=== PATIENT | male | born 1980 | race Caucasian/White ===

== ENCOUNTER 2021-02-09 00:54 | Emergency (ER) | payer BC ==
[2021-02-09] MEDS ORDERED: TYLENOL 325 MG PO ONE (01:05)
[2021-02-09] MEDS ORDERED: Zofran 4 MG/2 ML VIAL IV ONE (01:05)
[2021-02-09] MEDS ORDERED: Sodium Chloride 0.9% 1000 ML 1,000 ML IV STA (01:05)
[2021-02-09] MEDS ORDERED: MOTRIN 600 MG PO ONE (01:05)
[2021-02-09 01:06] VITALS: O2SAT 97
[2021-02-09] MEDS ORDERED: solu-MEDROL 125 MG, Sterile H2O 10 ml 2 ML IV ONE ×2 (01:08)
[2021-02-09] MEDS ORDERED: TYLENOL 325 MG ONE (01:24)
[2021-02-09] MEDS ORDERED: MOTRIN 600 MG ONE (01:24)
[2021-02-09 01:33] LABS: Absolute Neutrophil Ct (ANC) 11.37 (1.4-6.9); BASOPHIL % 0.1 % (0.0-0.4); Basophil (Absolute #) 0.02 (0-0.4); Eosinophil (Absolute #) 0 (0-0.5); Hematocrit 46.3 % (42-50); Hemoglobin 15.3 gm/dl (12.5-18.0); Lymphocyte (Absolute #) 2.67 (1.0-4.6); Lymphocytes % 16.4 % (24.0-44.0); Mean Cell Volume 87.4 fl (78-100); Mean Corpuscular Hemoglobin 28.9 pg (26-32); Mean Platelet Volume 11.3 fl (7.5-11.0); Monocyte (Absolute #) 2.21 (0.0-1.3); Monocytes % 13.6 % (0.0-12.0); Neutrophil % 69.9 % (36.0-66.0); Platelet Count 195 K/mm3 (150-450); Red Cell Distribution Width 13.4 % (11.5-14.0); White Blood Count 16.3 K/mm3 (4.0-10.5)
[2021-02-09] MEDS ORDERED: Zofran 4 MG/2 ML VIAL ONE (01:43)
[2021-02-09] MEDS ORDERED: solu-MEDROL ONE (01:44)
[2021-02-09] MEDS ORDERED: Sodium Chloride 0.9% 1000 ML 1,000 ML ONE (01:44)
[2021-02-09 01:50] LABS: ALBUMIN 4.3 g/dL (3.5-5.0); ALKALINE PHOSPHATASE 77 U/L (38-126); ANION GAP 15.9 MEQ/L (5-15); BLOOD UREA NITROGEN 16 mg/dL (9-20); CHLORIDE 103 mmol/L (98-107); Calcium 9.3 mg/dL (8.4-10.2); Carbon Dioxide 21 mmol/L (22-30); Creatinine 1 1.08 mg/dL (0.66-1.25); EST GLOMERULAR FILTRATION RATE > 60.0 ML/MIN; Glucose 123 mg/dL (74-106); Potassium 3.6 mmol/L (3.5-5.1); SGOT/AST 25 U/L (17-59); SGPT/ALT 24 U/L (0-50); SODIUM 136 mmol/L (137-145); Total Protein 7.1 g/dL (6.3-8.2)
--- NOTE | 2021-02-09 01:59 | ERPHSYRPT ---
- History of Present Illness Time Seen by Provider: 02/09/21 01:15 Source: patient Exam Limitations: no limitations Patient Subjective Stated Complaint: I have sorethroat, rt ear pain, gen aches, fever Triage Nursing Assessment: pt c/o sorethroat, rt ear pain, generalized body aches and fever. Pt was seen in [facility] care clinic today and swabbed for covid and strep, pt says results were negative. Pt hasn't been able to eat and drink normally for the last couple days, hurts when he swallows. Pt's throat is red with white patches in the back of his throat. Physician History: Patient is a 40-year-old white male who has been sick for 2 days. He started with fever and body aches and a severe sore throat as well as right ear pain. His temperature this evening was 102 before coming to the ER. He was seen in quick clinic today had a Covid swab and a rapid strep swab both of which were negative he did receive an injection of antibiotics and was given a prescription for Augmentin. Timing/Duration: abrupt onset Severity: severe ENT Location: ear (R), nose Prearrival Treatment: prescription meds Modifying Factors: Improves With: coughing Associated Symptoms: ear pain (R), cough, headache, swollen glands, sore throat, difficulty swallowing Allergies/Adverse Reactions: No Known Drug Allergies Allergy (Unverified 02/09/21 01:15) Home Medications: Amoxicillin/Potassium Clav [Amox-Clav 875-125 mg Tablet] 1 tab PO BID 02/09/21 [History] Hx Tetanus, Diphtheria Vaccination/Date Given: Yes Hx Influenza Vaccination/Date Given: No Hx Pneumococcal Vaccination/Date Given: No Immunizations Up to Date: Yes Travel Risk - International Travel Have you traveled outside of the country in past 3 weeks: No - Coronavirus Screening Are you exhibiting any of the following symptoms?: Yes Symptoms: Fever, Headaches/Body Aches/Fatigue Close contact with a COVID-19 positive Pt in past 14-21 Days: No - Vaccine Status Have you recieved a Covid-19 vaccination: No - Review of Systems Constitutional: Fever, Malaise, Weakness, No Chills Eyes: No Symptoms Ears, Nose, & Throat: Ear Pain, Throat Pain, Throat Swelling, Hoarse, Painful S wallowing Respiratory: Cough, No Dyspnea Cardiac: No Chest Pain, No Edema, No Syncope Abdominal/Gastrointestinal: No Abdominal Pain, No Nausea, No Vomiting, No Diarrhea Genitourinary Symptoms: No Symptoms, No Dysuria Musculoskeletal: Arthralgias, Myalgias, No Back Pain, No Neck Pain Skin: No Rash Neurological: No Dizziness, No Focal Weakness, No Sensory Changes Psychological: No Symptoms Endocrine: No Symptoms All Other Systems: Reviewed and Negative - Past Medical History Pertinent Past Medical History: Yes Neurological History: No Pertinent History ENT History: No Pertinent History Cardiac History: No Pertinent History Respiratory History: No Pertinent History Endocrine Medical History: No Pertinent History Musculoskeletal History: No Pertinent History GI Medical History: No Pertinent History History: No Pertinent History Psycho-Social History: No Pertinent History Male Reproductive Disorders: No Pertinent History Other Medical History: recovering alcoholic. frequent sore throat - Past Surgical History Past Surgical History: No Neuro Surgical History: No Pertinent History Cardiac: No Pertinent History Respiratory: No Pertinent History Gastrointestinal: No Pertinent History Genitourinary: No Pertinent History Musculoskeletal: No Pertinent History Male Surgical History: No Pertinent History - Social History Smoking Status: Current every day smoker How long have you smoked: 20 Exposure to second hand smoke: Yes Drug Use: none Patient Lives Alone: No - Nursing Vital Signs Nursing Vital Signs: Initial Vital Signs Temperature 102.6 F 02/09/21 01:00 Pulse Rate 110 H 02/09/21 01:00 Respiratory Rate 20 02/09/21 01:00 Blood Pressure 169/89 02/09/21 01:00 O2 Sat by Pulse Oximetry 97 02/09/21 01:00 Pain Scale Pain Intensity 4 - Physical Exam General Appearance: mild distress Eye Exam: bilateral eye: PERRL, EOMI Ear Exam: bilateral ear: auricle normal, canal normal, TM normal Nasal Exam: normal inspection Throat Exam: pharynx swelling, pharynx tenderness, tonsillar exudate, tonsillar swelling, uvula swelling Neck Exam: lymphadenopathy (R), lymphadenopathy (L) Cardiovascular/Respiratory Exam: normal breath sounds, regular rate/rhythm Abdominal Exam: non-tender, soft Neurologic Exam: alert, oriented x 3, sensation nml, No motor deficits Skin Exam: normal color, warm, dry SpO2 Interpretation: normal SpO2: 97 O2 Delivery: Room Air - Course Nursing assessment & vital signs reviewed: Yes - Radiology Exams Chest X-ray Interpretation: Interpreted by me, Negative Ordered Tests: Active Orders 24 hr Category Date Time Status IV Insertion STAT Care 02/09/21 01:05 Active CHEST 1 VIEW (PORTABLE) Stat Exams 02/09/21 01:06 Ordered BLOOD CULTURE Stat Lab 02/09/21 01:30 Received CBC W DIFF Stat Lab 02/09/21 01:30 Completed CMP Stat Lab 02/09/21 01:30 Completed CULTURE,URINE Stat Lab 02/09/21 01:56 Received UA W/RFX UR CULTURE Stat Lab 02/09/21 01:56 Completed Medication Summary Discontinued Medications Generic Name Dose Route Start Last Admin Trade Name Rissa PRN Reason Stop Dose Admin Acetaminophen 975 mg 02/09/21 01:05 02/09/21 01:25 Acetaminophen 325 Mg Tablet PO 02/09/21 01:06 975 mg STAT ONE Administration Acetaminophen Confirm 02/09/21 01:24 Acetaminophen 325 Mg Tablet Administered 02/09/21 01:25 Dose 975 mg .ROUTE .STK-MED ONE Methylprednisolone Sodium 0 mg 02/09/21 01:08 02/09/21 01:44 Succinate 125 mg/ Sterile IV 02/09/21 01:09 125 mg Water 2 ml STAT ONE Administration Sodium Chloride 1,000 mls @ 999 mls/hr 02/09/21 01:05 02/09/21 01:45 Sodium Chloride 0.9% 1000 Ml IV 02/09/21 02:05 999 mls/hr .Q1H1M STA Administration Sodium Chloride Confirm 02/09/21 01:44 Sodium Chloride 0.9% 1000 Ml Administered 02/09/21 01:45 Dose 1,000 mls @ ud .ROUTE .STK-MED ONE Ibuprofen 600 mg 02/09/21 01:05 02/09/21 01:25 Ibuprofen 600 Mg Tablet PO 02/09/21 01:06 600 mg STAT ONE Administration Ibuprofen Confirm 02/09/21 01:24 Ibuprofen 600 Mg Tablet Administered 02/09/21 01:25 Dose 600 mg .ROUTE .STK-MED ONE Methylprednisolone Sodium Succinate Confirm 02/09/21 01:44 Methylprednis Sod Succ 125 Mg/2 Ml Vial Administered 02/09/21 01:45 Dose 125 mg .ROUTE .STK-MED ONE Ondansetron HCl 4 mg 02/09/21 01:05 02/09/21 01:44 Ondansetron Hcl 4 Mg/2 Ml Vial IV 02/09/21 01:06 4 mg STAT ONE Administration Ondansetron HCl Confirm 02/09/21 01:43 Ondansetron Hcl 4 Mg/2 Ml Vial Administered 02/09/21 01:44 Dose 4 mg .ROUTE .STK-MED ONE Lab/Rad Data: Laboratory Result Diagrams 02/09/21 01:30 02/09/21 01:30 Laboratory Results 02/09/21 02/09/21 02/09/21 Range/Units 01:56 01:30 01:30 WBC (4.0-10.5) K/mm3 RBC (4.1-5.6) M/mm3 Hgb (12.5-18.0) gm/dl Hct (42-50) % MCV (78-100) fl MCH (26-32) pg MCHC (32-36) g/dl RDW (11.5-14.0) % Plt Count (150-450) K/mm3 MPV (7.5-11.0) fl Gran % (36.0-66.0) % Eos # (Auto) (0-0.5) Absolute Lymphs (auto) (1.0-4.6) Absolute Monos (auto) (0.0-1.3) Lymphocytes % (24.0-44.0) % Monocytes % (0.0-12.0) % Eosinophils % (0.00-5.0) % Basophils % (0.0-0.4) % Absolute Granulocytes (1.4-6.9) Basophils # (0-0.4) Sodium 136 L (137-145) mmol/L Potassium 3.6 (3.5-5.1) mmol/L Chloride 103 (98-107) mmol/L Carbon Dioxide 21 L (22-30) mmol/L Anion Gap 15.9 H (5-15) MEQ/L BUN 16 (9-20) mg/dL Creatinine 1.08 (0.66-1.25) mg/dL Estimated GFR > 60.0 ML/MIN Glucose 123 H (74-106) mg/dL Calcium 9.3 (8.4-10.2) mg/dL Total Bilirubin 0.90 (0.2-1.3) mg/dL AST 25 (17-59) U/L ALT 24 (0-50) U/L Alkaline Phosphatase 77 (38-126) U/L Serum Total Protein 7.1 (6.3-8.2) g/dL Albumin 4.3 (3.5-5.0) g/dL Urine Color JOHN (YELLOW) Urine Appearance SLIGHTLY CLOUDY (CLEAR) Urine pH 5.0 (5-6) Ur Specific [place] 1.027 (1.005-1.025) Urine Protein >=500 (Negative) Urine Ketones SMALL (NEGATIVE) Urine Blood SMALL (0-5) Forrest/ul Urine Nitrite NEGATIVE (NEGATIVE) Urine Bilirubin NEGATIVE (NEGATIVE) Urine Urobilinogen 2 (0-1) mg/dL Ur Leukocyte Esterase NEGATIVE (NEGATIVE) Urine WBC (Auto) NONE (0-5) /HPF Urine RBC (Auto) 0-2 (0-2) /HPF U Epithel Cells (Auto) NONE (FEW) /HPF Urine Bacteria (Auto) NONE SEEN (NEGATIVE) /HPF Urine Mucus (Auto) SLIGHT (NEGATIVE) /HPF Urine Culture Reflexed YES (NO) Urine Glucose NEGATIVE (NEGATIVE) mg/dL Influenza Type A Ag NEGATIVE (NEGATIVE) Influenza Type B Ag NEGATIVE (NEGATIVE) RSV (PCR) NEGATIVE (Negative) SARS-CoV-2 (PCR) NEGATIVE (NEGATIVE) Group A Strep Antibody NOT DETECTED (NEGATIVE) 02/09/21 Range/Units 01:30 WBC 16.3 H (4.0-10.5) K/mm3 RBC 5.30 (4.1-5.6) M/mm3 Hgb 15.3 (12.5-18.0) gm/dl Hct 46.3 (42-50) % MCV 87.4 (78-100) fl MCH 28.9 (26-32) pg MCHC 33.0 (32-36) g/dl RDW 13.4 (11.5-14.0) % Plt Count 195 (150-450) K/mm3 MPV 11.3 H (7.5-11.0) fl Gran % 69.9 H (36.0-66.0) % Eos # (Auto) 0 (0-0.5) Absolute Lymphs (auto) 2.67 (1.0-4.6) Absolute Monos (auto) 2.21 H (0.0-1.3) Lymphocytes % 16.4 L (24.0-44.0) % Monocytes % 13.6 H (0.0-12.0) % Eosinophils % 0.0 (0.00-5.0) % Basophils % 0.1 (0.0-0.4) % Absolute Granulocytes 11.37 H (1.4-6.9) Basophils # 0.02 (0-0.4) Sodium (137-145) mmol/L Potassium (3.5-5.1) mmol/L Chloride (98-107) mmol/L Carbon Dioxide (22-30) mmol/L Anion Gap (5-15) MEQ/L BUN (9-20) mg/dL Creatinine (0.66-1.25) mg/dL Estimated GFR ML/MIN Glucose (74-106) mg/dL Calcium (8.4-10.2) mg/dL Total Bilirubin (0.2-1.3) mg/dL AST (17-59) U/L ALT (0-50) U/L Alkaline Phosphatase (38-126) U/L Serum Total Protein (6.3-8.2) g/dL Albumin (3.5-5.0) g/dL Urine Color (YELLOW) Urine Appearance (CLEAR) Urine pH (5-6) Ur Specific [place] (1.005-1.025) Urine Protein (Negative) Urine Ketones (NEGATIVE) Urine Blood (0-5) Forrest/ul Urine Nitrite (NEGATIVE) Urine Bilirubin (NEGATIVE) Urine Urobilinogen (0-1) mg/dL Ur Leukocyte Esterase (NEGATIVE) Urine WBC (Auto) (0-5) /HPF Urine RBC (Auto) (0-2) /HPF U Epithel Cells (Auto) (FEW) /HPF Urine Bacteria (Auto) (NEGATIVE) /HPF Urine Mucus (Auto) (NEGATIVE) /HPF Urine Culture Reflexed (NO) Urine Glucose (NEGATIVE) mg/dL Influenza Type A Ag (NEGATIVE) Influenza Type B Ag (NEGATIVE) RSV (PCR) (Negative) SARS-CoV-2 (PCR) (NEGATIVE) Group A Strep Antibody (NEGATIVE) - Progress Progress: improved - Departure Departure Disposition: Home Clinical Impression: Pharyngitis Condition: Stable Critical Care Time: No Referrals: AMADOR WILLSON MD [Primary Care Provider] - Follow up/PCP as directed Instructions: Viral Pharyngitis (DC) Additional Instructions: Patient instructed to await results of the Monospot Prescriptions: Prednisone 10 mg [Deltasone 10 mg] 20 mg PO TID #12 tablet
[2021-02-09 02:04] LABS: Group A Strep NOT DETECTED (NEGATIVE)
[2021-02-09 02:09] LABS: Appearance SLIGHTLY CLOUDY (CLEAR); Bilirubin NEGATIVE (NEGATIVE); Blood SMALL Ery/ul (0-5); Glucose NEGATIVE (NEGATIVE); Ketones SMALL (NEGATIVE); Leukocyte Esterase NEGATIVE (NEGATIVE); Mucus SLIGHT /HPF (NEGATIVE); Nitrite NEGATIVE (NEGATIVE); Protein,Urine Dip >=500 (Negative); RBC 0-2 /HPF (0-2); Specific Gravity 1.027 (1.005-1.025); Urobilinogen 2 mg/dL (0-1)
[2021-02-09 02:14] LABS: INFLUENZA A NEGATIVE (NEGATIVE); INFLUENZA B NEGATIVE (NEGATIVE); RESPIRATORY SYNCTIAL VIRUS NEGATIVE (Negative); SARS-CoV-2 Xpert Express NEGATIVE (NEGATIVE)
[2021-02-09 02:14] LABS: Bacteria NONE SEEN /HPF (NEGATIVE)
[2021-02-09 02:58] VITALS: BP 112/76; PULSE 82
--- NOTE | 2021-02-09 08:57 | XRAY ---
Indication: Cough. Fever. Comparison: None Portable chest demonstrates normal heart and lungs. Bony thorax intact with mild degenerative changes.
== END 2021-02-09 03:00 | disposition home or self-care (01) ==
LOC: ED 00:54
DX: J02.9 Acute pharyngitis, unspecified (principal); R50.9 Fever, unspecified; R05.9 Cough, unspecified; R51.9 Headache, unspecified; Z72.0 Tobacco use
CPT/HCPCS: 0241U; 36000; 36415; 71045; 80053; 81001; 85025; 86308; 87040; 87086; 87651; 96374; 96375; 99284; J2405; J2930; A9270-GY

== ENCOUNTER 2022-02-26 05:54 | Day surgery (SDC) | payer BC ==
[2022-02-26] MEDS ORDERED: Lactated Ringers 1,000 ML IV ONE (06:06)
[2022-02-26] MEDS ORDERED: Lactated Ringers 1,000 ML IV SCH (06:30)
== END 2022-02-26 06:21 | disposition home or self-care (01) ==
LOC: SDC 05:54
PROVIDERS: ATTEND Family Medicine
DX: Z53.8 Procedure and treatment not carried out for other reasons (principal)

== ENCOUNTER 2022-03-19 06:06 | Day surgery (SDC) | payer BC ==
[2022-03-19] MEDS ORDERED: Lactated Ringers 1,000 ML IV SCH (06:30)
[2022-03-19] MEDS ORDERED: DIPRIVAN 200 MG/20 ML IV ONE ×2 (07:32→07:45)
[2022-03-19] MEDS ORDERED: Versed 2 MG/2 ML Injection ONE (07:32)
--- NOTE | 2022-03-19 08:25 | OP ---
SURGERY DATE/TIME: 03/19/2022 0731 PREOPERATIVE DIAGNOSIS: Rectal bleeding. POSTOPERATIVE DIAGNOSIS: Proctitis. PROCEDURE: Colonoscopy with cold forceps biopsy. SURGEON: Dr. Surinder Meza. ANESTHESIA: MAC. Medications given by anesthesia department. HISTORY: The patient is a 42-year-old white male patient who reports that he has been having problems with rectal bleeding. It did have some gelatinous appearance to it at times. The patient was felt the need to have endoscopic evaluation. He was appraised of the risks of the procedure including the risk of perforation, phlebitis, untoward reaction to medication, bleeding and missed lesions. The patient verbalized his understanding and desired to have the procedure performed. DESCRIPTION OF PROCEDURE: The patient was given the medications by the anesthesia department. He had continuous pulse oximetry, ECG monitoring and intermittent blood pressure monitoring during the examination. He was placed in the left lateral decubitus position. A digital rectal examination was performed and revealed normal anal sphincter tone, no masses and normal prostate. The flexible Olympus pediatric colonoscope was used to intubate the rectum. A view of the colon was developed sequentially to the cecum. Upon insertion and withdrawal, including a retroflex view in the rectum was noted to be some inflammatory process in the rectum this is biopsied using cold forceps technique. No other mucosal lesions were encountered. The scope was removed from the patient who tolerated the procedure well and was sent back to outpatient recovery in good condition. The prep was noted to be fair with fairly large amount of semisolid stool in the colon.
[2022-03-19 08:42] VITALS: O2SAT 93
[2022-03-19 08:49] VITALS: BP 123/79; PULSE 69
== END 2022-03-19 09:00 | disposition home or self-care (01) ==
LOC: SDC 06:06
PROVIDERS: ATTEND Family Medicine
DX: K62.89 Other specified diseases of anus and rectum (principal); K62.5 Hemorrhage of anus and rectum
CPT/HCPCS: J2250; J2704